=== PATIENT | male | born 2000 | race African-American/Black ===

== ENCOUNTER 2021-11-16 04:09 | Day surgery (SDC) | payer BC ==
[2021-11-10 13:50] VITALS: BMI 25.4
[2021-11-16] MEDS ORDERED: ROCURONIUM BROMIDE 50 MG/5 ML SYRINGE ONE (10:02)
[2021-11-16] MEDS ORDERED: SUCCINYLCHOLINE CHLORIDE 200 MG/10 ML SYRINGE ONE (10:02)
[2021-11-16] MEDS ORDERED: MIDAZOLAM HCL 2 MG/2 ML SINGLE DOSE VIAL ONE (10:02)
[2021-11-16] MEDS ORDERED: LIDOCAINE HCL/PF 2% SDV 5ML VIAL ONE (10:05)
[2021-11-16] MEDS ORDERED: ceFAZolin SODIUM 1 GM VIAL ONE (10:31)
[2021-11-16] MEDS ORDERED: DEXAMETHASONE SOD PHOSPHATE 4 MG/1 ML VIAL ONE (10:31)
[2021-11-16] MEDS ORDERED: ceFAZolin SODIUM 1 GM VIAL IVPB ONE (10:32)
[2021-11-16] MEDS ORDERED: PROPOFOL 40 ML ONE (10:45)
[2021-11-16] MEDS ORDERED: ESMOLOL HCL 100,000 MCG/10 ML VIAL ONE (10:55)
[2021-11-16] MEDS ORDERED: ONDANSETRON 4 MG/2 ML VIAL ONE (10:56)
[2021-11-16] MEDS ORDERED: GLYCOPYRROLATE 0.2 MG/1 ML VIAL ONE (10:56)
[2021-11-16] MEDS ORDERED: NEOSTIGMINE METHYLSULFATE 0.5 MG/ML - 10 ML MDV ONE (10:58)
[2021-11-16] MEDS ORDERED: ACETAMINOPHEN INJECTION 100 ML IVPB ONE (11:47)
[2021-11-16] MEDS ORDERED: ONDANSETRON 4 MG/2 ML VIAL IVPUSH PRN (11:48)
[2021-11-16] MEDS ORDERED: ACETAMINOPHEN 1000 MG/100 ML BAG IVPB ONE (11:49)
[2021-11-16] MEDS ORDERED: oxyCODONE HCL 5 MG TABLET PO PRN ×2 (11:54)
[2021-11-16] MEDS ORDERED: LACTATED RINGERS SOLUTION 1,000 ML IV SCH (12:00)
[2021-11-16] MEDS ORDERED: LABETALOL HCL 5 MG/1 ML (100MG/20 ML VIAL) IVPUSH ONE (12:51)
[2021-11-16] MEDS ORDERED: oxyCODONE HCL 5 MG TABLET ONE (13:30)
[2021-11-16 16:35] VITALS: RESP 20; TEMP 98
[2021-11-16 16:37] VITALS: BP 132/75; PULSE 58
== END 2021-11-16 16:00 | disposition home or self-care (01) ==
LOC: JASU-SURG 04:09
PROVIDERS: ATTEND Otolaryngology
PROC: 0KS Muscles, Reposition (ICD-10-PCS; 2021-11-16)
PROC: 0CTPXZZ Resection of Tonsils, External Approach (ICD-10-PCS; principal; 2021-11-16 09:30)
PROC: 0CTQXZZ Resection of Adenoids, External Approach (ICD-10-PCS; 2021-11-16 09:30)
DX: G47.33 Obstructive sleep apnea (adult) (pediatric) (principal); J35.3 Hypertrophy of tonsils with hypertrophy of adenoids
CPT/HCPCS: 88304-TC; 94760